=== PATIENT | female | born 1990 | race African-American/Black ===

== ENCOUNTER 2018-05-26 18:45 | Emergency (ER) | payer BC, SELFPAY | END 2018-05-26 21:45 | disposition home or self-care (01) | LOC: ERS 18:45 | DX: F41.9 Anxiety disorder, unspecified (principal); F32.9 Major depressive disorder, single episode, unspecified; F17.210 Nicotine dependence, cigarettes, uncomplicated | CPT/HCPCS: 93005 ==

== ENCOUNTER 2019-01-15 14:20 | Emergency (ER) | payer BC | END 2019-01-15 18:05 | disposition left against medical advice (07) | LOC: ERS 14:20 | DX: Z53.21 Procedure and treatment not carried out due to patient leaving prior to being seen by health care provider (principal); F41.9 Anxiety disorder, unspecified; F32.9 Major depressive disorder, single episode, unspecified; F17.210 Nicotine dependence, cigarettes, uncomplicated ==

== ENCOUNTER 2019-06-01 08:18 | Emergency (ER) | payer BC ==
--- NOTE | 2019-06-01 10:30 | RAD ---
CHEST TWO VIEWS: HISTORY: Right rib pain. FINDINGS: Heart size and mediastinum are within normal limits. The lungs are clear of infiltrates. No signifi cant bony findings. IMPRESSION: No active intrathoracic disease. POS: OFF
== END 2019-06-01 17:02 | disposition home or self-care (01) ==
LOC: ERS 08:18
DX: R07.89 Other chest pain (principal); F17.210 Nicotine dependence, cigarettes, uncomplicated
CPT/HCPCS: 71046